=== PATIENT | female | born 1965 | race Caucasian/White ===

== ENCOUNTER 2017-12-27 09:52 | Emergency (ER) | payer BC ==
[~2017-12-27] VITALS: Ht 157.5 cm; Wt 60.7 kg
[~2017-12-27 09:52] MED LIST: ADVIL200 MG PO; AMOXICILLIN250 MG PO; AZO URINARY P97.5 MG PO; BACTRIM,SEPT1 TABLET PO; CEFTIN500 MG PO; KEFLEX500 MG PO; MEDROL4 MG PO; METHYLPREDNISOLO4 MG PO; NAPROSYN500 MG PO; PERCOCET 10/1 TABLET PO; PROBIOTIC1 EAC1 PO; PYRIDIUM200 MG PO; TYLENOL REGULA325 MG PO; URO-MP CAPSULE1 EACH PO; ZOFRAN ODT4 MG PO; ZYVOX600 MG PO
[2017-12-27] MEDS ORDERED: BENADRYL50 MG PO (10:18)
[2017-12-27] MEDS ORDERED: PREDNISONE20 MG PO (10:18)
[2017-12-27] MEDS ORDERED: PEPCID40 MG PO (10:19)
[2017-12-27 10:51] VITALS: BP 114/67
== END 2017-12-27 10:52 | disposition home or self-care (01) ==
LOC: EME 09:52
DX: L50.9 Urticaria, unspecified (principal); J45.909 Unspecified asthma, uncomplicated; M06.9 Rheumatoid arthritis, unspecified; K58.9 Irritable bowel syndrome, unspecified; F41.9 Anxiety disorder, unspecified; Z87.891 Personal history of nicotine dependence; Z88.2 Allergy status to sulfonamides; Z88.1 Allergy status to other antibiotic agents
CPT/HCPCS: 99281; 99284; J7512